=== PATIENT | male | born 1985 | race Two or more races ===

== ENCOUNTER 2018-04-22 06:40 | Emergency (ER) | payer OTHER ==
[2018-04-22 06:47] VITALS: BP 158/93; PULSE 112; TEMP 97.8; BMI 34.0
[2018-04-22] MEDS ORDERED: predniSONE 20 MG TABLET (UD) ONE (06:48)
[2018-04-22] MEDS ORDERED: KETOROLAC TROMETHAMINE 60 MG/2 ML VIAL IM ONE (06:48)
[2018-04-22] MEDS ORDERED: KETOROLAC TROMETHAMINE 60 MG/2 ML VIAL ONE (06:48)
[2018-04-22] MEDS ORDERED: predniSONE 20 MG TABLET (UD) PO ONE (06:48)
--- NOTE | 2018-04-22 06:53 | PDOC ---
History of Present Illness - General Chief Complaint: Pain, Acute Stated Complaint: BACK INJURY AT WORK YESTERDAY Time Seen by Provider: 04/22/18 06:47 History Source: Patient Exam Limitations: No Limitations - History of Present Illness Initial Comments: This is a 32-year-old male who comes in complaining of low back pain radiating to his right leg. 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 Patient was straining to lift an object yesterday at work when he felt sudden onset of low back pain that radiated to his right butt cheek. Over the course of the next 24 hours patient said pain is become progressively worse to the point that he is unable to work or obtain any sort of comfortable position. Patient denies any history of sciatica or back pain in the past. Patient did not take anything for the pain. Patient denies any weakness or numbness of the right leg. Allergies: None Past Medical History: none Social history: Lives with family. No smoking. No alcohol. No illicit drugs. Surgical history: None General: No fevers or chills, no weakness, no weight loss HEENT: No change in vision. No sore throat,. No ear pain CardioVascular: no chest discomfort. No shortness of breath Respiratory:No cough, or wheezing. Gastrointestinal: no nausea, vomiting, diarrhea or constipation, No rectal bleeding Genitourinary: No dysuria, hematuria, or frequency Musculoskeletal: Right leg pain Neurologic: Low back pain radiating to right hip and leg No headache, vertigo, dizziness or loss of consciousness Psychiatric: nor depression Skin: No rashes or easy bruising Endocrine: no increased thirst or abnormal weight change Allergic: no skin or latex allergy All other systems reviewed and normal GENERAL: The patient is awake, alert, and fully oriented, in no acute distress. HEAD: Normal with no signs of trauma. EYES: Pupils equal, round and reactive to light, extraocular movements intact, sclera anicteric, conjunctiva clear. EXTREMITIES:atraumatic, Normal range of motion, no edema. BACK: There is no bony tenderness on palpation of the lumbar spine however there is tenderness on palpation over the right sciatic notch Straight leg is positive on the right neurovascular is intact NEUROLOGICAL: Normal speech, normal gait. PSYCH: Normal mood, normal affect. SKIN: Warm, Dry, normal turgor, no rashes or lesions noted. Assessment plan: This is a 32-year-old male with new onset sciatica that radiates to the right buttock and thigh. Does not extend past the knee. Patient given Toradol, prednisone, and a muscle relaxant was sent to his pharmacy. Patient discharged and given a note for the rest of the week off from work and follow-up with an orthopedist. Past History - Past Medical History Allergies/Adverse Reactions: Allergies Allergy/AdvReac Type Severity Reaction Status Date / Time Penicillins Allergy Intermediate Rash Verified 04/22/18 06:42 Home Medications: Ambulatory Orders Methocarbamol [Robaxin -] 500 mg PO TID #21 tablet 04/22/18 Naproxen [Naprosyn] 500 mg PO BID #28 tablet 04/22/18 Asthma: No COPD: No Diabetes: No HTN: No - Immunization History Td Vaccination: No TDAP Vaccination: No Immunization Up to Date: No - Suicide/Smoking/Psychosocial Hx Smoking Status: Yes Smoking History: Current every day smoker Have you smoked in the past 12 months: Yes Number of Cigarettes Smoked Daily: 3 If you are a former smoker, when did you quit?: 6 MONTHS AGO Information on smoking cessation initiated: Yes 'Breaking Loose' booklet given: 10/01/13 Hx Alcohol Use: Yes (SOCIAL) Drug/Substance Use Hx: No Substance Use Type: None *Physical Exam - Vital Signs Last Vital Signs Temp Pulse Resp BP Pulse Ox 97.8 F 112 H 16 158/93 100 04/22/18 06:43 04/22/18 06:43 04/22/18 06:43 04/22/18 06:43 04/22/18 06:43 Moderate Sedation - Procedure Monitoring Vital Signs: Procedure Monitoring Vital Signs Temperature 97.8 F 04/22/18 06:43 Pulse Rate 112 H 04/22/18 06:43 Respiratory Rate 16 04/22/18 06:43 Blood Pressure 158/93 04/22/18 06:43 O2 Sat by Pulse Oximetry (%) 100 04/22/18 06:43 *DC/Admit/Observation/Transfer Diagnosis at time of Disposition: Sciatica of right side - Discharge Dispostion Disposition: HOME Condition at time of disposition: Stable Decision to Admit order: No - Prescriptions Prescriptions: Methocarbamol [Robaxin -] 500 mg PO TID #21 tablet Naproxen [Naprosyn] 500 mg PO BID #28 tablet - Referrals Referrals: Osiel Hidalgo MD [Staff Physician] - - Patient Instructions Additional Instructions: The pain from your back is due to irritation and compression of the sciatic nerve. I am sending a prescription to your pharmacy for naproxen which is an anti- inflammatory get the prescription and take it twice a day with food do not take on an empty stomach. I'm also sending a prescription to your pharmacy for a muscle relaxant U can take it as often as 3 times a day it may make you drowsy so when you take it be aware that you won't be able to operate heavy equipment or go to work. If you have to go to work and still need to take it limited to the nighttime hours. Follow-up with an orthopedist. Return to the emergency department immediately with ANY new, persistent or worsening symptoms. Continue any medications as previously prescribed by your physician. You should follow up with your primary doctor as soon as possible regarding today's emergency department visit. . Please make sure your doctor reviews the results of your emergency evaluation. Thank you for coming to the Emergency Department today for your care. It was a pleasure to see you today. Please note that your evaluation is INCOMPLETE until you follow-up with your doctor. - Post Discharge Activity Forms/Work/School Notes: Back to Work
== END 2018-04-22 06:59 | disposition home or self-care (01) ==
LOC: FER 06:40
PROC: 3E0233Z Introduction of Anti-inflammatory into Muscle, Percutaneous Approach (ICD-10-PCS; principal; 2018-04-22)
DX: M54.31 Sciatica, right side (principal); F17.210 Nicotine dependence, cigarettes, uncomplicated
CPT/HCPCS: 99281-25

== ENCOUNTER 2018-05-23 09:31 | Emergency (ER) | payer OTHER ==
[2018-05-23] MEDS ORDERED: SODIUM CHLORIDE 1,000 ML IV STA (09:49)
[2018-05-23] MEDS ORDERED: KETOROLAC TROMETHAMINE 30 MG/1 ML VIAL IVPUSH ONE (09:49)
[2018-05-23] MEDS ORDERED: KETOROLAC TROMETHAMINE 30 MG/1 ML VIAL ONE (09:50)
[2018-05-23 09:55] VITALS: BP 130/75; PULSE 68; TEMP 98.5; BMI 34.0
[2018-05-23 10:16] LABS: BASO % 0.7 % (0-2.0); EOS % 1.2 % (0-4.5); HEMATOCRIT 46.7 % (35.4-49); HEMOGLOBIN 14.9 GM/dl (11.7-16.9); LYMPH % 34.4 % (8-40); MCH 28.9 pg (25.7-33.7); MCHC 31.9 g/dl (32.0-35.9); MEAN CELL VOLUME 90.4 fl (80-96); MEAN PLT VOLUME 8.7 fl (7.5-11.1); MONO % 9.7 % (3.8-10.2); PLATELET COUNT 260 K/MM3 (134-434); RBC 5.16 M/mm3 (4.00-5.60); RDW 13.1 % (11.9-15.9); WHITE BLOOD COUNT 8.8 K/mm3 (4.0-10.8)
[2018-05-23 10:24] LABS: ALBUMIN 4.5 g/dl (3.4-5.0); ALK PHOS 51 U/L (45-117); ANION GAP 9 MMOL/L (8-16); BILIRUBIN,TOTAL 0.6 mg/dl (0.2-1); BLOOD UREA NITROGEN 18 mg/dl (7-18); CALCIUM 9.1 mg/dl (8.5-10); CHLORIDE 102 mmol/L (98-107); CO2 24 mmol/L (21-32); CREATININE 1.1 mg/dl (0.55-1.3); GLUCOSE,RANDOM 144 mg/dl (74-106); POTASSIUM 3.6 mmol/L (3.5-5.1); SGOT/AST 23 U/L (15-37); SGPT/ALT 25 U/L (13-61); SODIUM 135 mmol/L (136-145); TOT PROT 7.6 g/dl (6.4-8.2)
[2018-05-23] MEDS ORDERED: HYDROmorphone HCL CARPU-JECT 1 MG/1 ML DISP.SYRIN IVPUSH ONE (10:47)
[2018-05-23] MEDS ORDERED: HYDROmorphone HCL CARPU-JECT 1 MG/1 ML DISP.SYRIN ONE (10:49)
[2018-05-23] MEDS ORDERED: TAMSULOSIN HCL 0.4 MG CAP PO ONE (12:05)
--- NOTE | 2018-05-23 12:20 | PDOC ---
History of Present Illness - General Chief Complaint: Pain Stated Complaint: RT SIDE ABD PAIN Time Seen by Provider: 05/23/18 09:36 History Source: Patient, Parent(s) Exam Limitations: No Limitations - History of Present Illness Initial Comments: 05/23/18 12:16 CHIEF COMPLAINT: Right flank pain since yesterday HISTORY OF PRESENT ILLNESS: Healthy 32-year-old man presents complaining of onset of severe right flank and right lower quadrant pain with nausea and sweating since this morning. He states yesterday he felt some very mild discomfort in the right flank and urgency to urinate. He also felt some slight nausea. This morning when he got up to urinate, he had sudden onset of severe right lower quadrant pain, unable to get comfortable, came to the ED. He continues to feel the urge to urinate. He also feels the urge to defecate. He had a normal bowel movement yesterday. No diarrhea or constipation. Denies fever. Denies hematuria. Denies history of kidney stones. REVIEW OF SYSTEMS: GENERAL/CONSTITUTIONAL: No fever or chills. No weakness. No weight change. HEAD, EYES, EARS, NOSE AND THROAT: No change in vision. No ear pain or discharge. No sore throat. CARDIOVASCULAR: No chest pain or shortness of breath. RESPIRATORY: No cough, wheezing, or hemoptysis. GASTROINTESTINAL: Positive nausea. No diarrhea or constipation. Positive urge to defecate. GENITOURINARY: Positive urge to urinate. No hematuria or dysuria. No history of kidney stones. MUSCULOSKELETAL: No joint or muscle swelling or pain. No neck or back pain. SKIN AND BREASTS: No rash or easy bruising. NEUROLOGIC: No headache, vertigo, loss of consciousness, or loss of sensation. PSYCHIATRIC: No depression or anxiety. ENDOCRINE: No increased thirst. No abnormal weight change. HEMATOLOGIC/LYMPHATIC: No anemia, easy bleeding, or history of blood clots. ALLERGIC/IMMUNOLOGIC: No hives or skin allergy. No latex allergy. Past History - Past Medical History Allergies/Adverse Reactions: Allergies Allergy/AdvReac Type Severity Reaction Status Date / Time Fish Containing Products Allergy Severe Swelling Verified 05/23/18 09:47 shellfish derived Allergy Severe Swelling Verified 05/23/18 09:47 Penicillins Allergy Intermediate Rash Verified 05/23/18 09:47 Home Medications: Ambulatory Orders Naproxen [Naprosyn -] 500 mg PO BID PRN #15 tablet 05/23/18 Tamsulosin HCl [Flomax] 0.4 mg PO DAILY #7 capsule 05/23/18 Asthma: No COPD: No Diabetes: No HTN: No - Immunization History Td Vaccination: No TDAP Vaccination: No Immunization Up to Date: No - Suicide/Smoking/Psychosocial Hx Smoking Status: Yes Smoking History: Never smoked Have you smoked in the past 12 months: No Number of Cigarettes Smoked Daily: 3 If you are a former smoker, when did you quit?: 6 MONTHS AGO Information on smoking cessation initiated: No 'Breaking Loose' booklet given: 10/01/13 Hx Alcohol Use: No Drug/Substance Use Hx: No Substance Use Type: None *Physical Exam - Vital Signs Last Vital Signs Temp Pulse Resp BP Pulse Ox 98.5 F 68 20 130/75 99 05/23/18 09:31 05/23/18 09:31 05/23/18 09:31 05/23/18 09:31 05/23/18 09:31 - Physical Exam Comments: 05/23/18 12:18 GENERAL: The patient is awake, alert, and fully oriented, complaining of severe right flank and right lower quadrant pain, pacing around the ED, unable to hold still. HEAD: Normal with no signs of trauma. EYES: Pupils equal, round and reactive to light, extraocular movements intact, sclera anicteric, conjunctiva clear. ENT: Ears normal, nares patent, oropharynx clear without exudates. Moist mucous membranes. NECK: Normal range of motion, supple without lymphadenopathy, JVD, or masses. LUNGS: Breath sounds equal, clear to auscultation bilaterally. No wheezes, and no crackles. HEART: Regular rate and rhythm, normal S1 and S2 without murmur, rub or gallop. ABDOMEN: Soft, nontender, normoactive bowel sounds. No guarding, no rebound. No masses. No right lower quadrant tenderness. BACK: No CVA tenderness. Positive mild right flank tenderness. EXTREMITIES: Normal range of motion, no edema. No clubbing or cyanosis. No cords, erythema, or tenderness. NEUROLOGICAL: Cranial nerves II through XII grossly intact. Normal speech, normal gait. PSYCH: Normal mood, normal affect. SKIN: Warm, mildly diaphoretic, normal turgor, no rashes or lesions noted. ED Treatment Course - LABORATORY CBC & Chemistry Diagram: 05/23/18 09:54 05/23/18 09:45 - ADDITIONAL ORDERS Additional order review: Laboratory Results 05/23/18 05/23/18 09:54 09:45 Sodium 135 L Potassium 3.6 Chloride 102 Carbon Dioxide 24 Anion Gap 9 BUN 18 Creatinine 1.1 Creat Clearance w eGFR 77.09 Random Glucose 144 H Calcium 9.1 Total Bilirubin 0.6 AST 23 ALT 25 Alkaline Phosphatase 51 Total Protein 7.6 Albumin 4.5 Urine Color Yellow Urine Appearance Clear Urine pH 5.0 Urine Protein Negative Urine Glucose (UA) Negative Urine Ketones Negative Urine Blood 1+ H Urine Nitrite Negative Urine Bilirubin Negative Urine Urobilinogen 0.2 Ur Leukocyte Esterase Negative 05/23/18 09:54 RBC 5.16 MCV 90.4 MCHC 31.9 L RDW 13.1 MPV 8.7 Neutrophils % 54.0 Lymphocytes % 34.4 D Monocytes % 9.7 Eosinophils % 1.2 Basophils % 0.7 - RADIOLOGY Radiology Studies Ordered: Category Date Time Status ABDOMEN & PELVIS CT W/O CONTR [CT] Stat CT Scan 05/23/18 10:26 Taken - Medications Given in the ED: ED Medications Discontinued Medications Generic Name Dose Route Start Last Admin Trade Name Freq PRN Reason Stop Dose Admin Hydromorphone HCl 1 mg 05/23/18 10:47 05/23/18 10:52 Dilaudid Injection - IVPUSH 05/23/18 10:48 1 mg ONCE ONE Administration Sodium Chloride 1,000 mls @ 1,000 mls/hr 05/23/18 09:49 05/23/18 09:54 Normal Saline - IV 05/23/18 10:48 1,000 mls/hr ASDIR STA Administration Ketorolac Tromethamine 30 mg 05/23/18 09:49 05/23/18 09:54 Toradol Injection - IVPUSH 05/23/18 09:50 30 mg ONCE ONE Administration Medical Decision Making - Medical Decision Making 05/23/18 13:02 32-year-old man with a family history of kidney stones but no prior episodes himself. Patient presents with colicky right flank pain today. On examination , there is mild right flank tenderness. Laboratory studies are notable for microscopic hematuria. Leukocyte esterase and nitrites are negative with no evidence of urinary infection. White blood cell count is normal. Creatinine is normal. Glucose is mildly elevated, but is a nonfasting specimen. CT scan of the abdomen and pelvis shows a 3 mm x 3.5 mm stone in the right ureter just proximal to the UVJ. There is mild hydroureter and hydronephrosis. Impression: Right ureteral stone with renal colic. No evidence for infection. No evidence for renal dysfunction. Plan: Patient will be discharged home, recommended oral hydration, Flomax 0.4 mg daily, Naprosyn 500 mg twice daily as needed for pain, and referral to urology for follow-up. Patient advised to observe for fever or other serious symptoms and return immediately to the emergency department if any problems develop. Laboratory Results - last 24 hr 05/23/18 05/23/18 05/23/18 09:45 09:54 09:54 WBC 8.8 RBC 5.16 Hgb 14.9 Hct 46.7 MCV 90.4 MCH 28.9 MCHC 31.9 L RDW 13.1 Plt Count 260 MPV 8.7 Absolute Neuts (auto) 4.7 Neutrophils % 54.0 Lymphocytes % 34.4 D Monocytes % 9.7 Eosinophils % 1.2 Basophils % 0.7 Sodium 135 L Potassium 3.6 Chloride 102 Carbon Dioxide 24 Anion Gap 9 BUN 18 Creatinine 1.1 Creat Clearance w eGFR 77.09 Random Glucose 144 H Calcium 9.1 Total Bilirubin 0.6 AST 23 ALT 25 Alkaline Phosphatase 51 Total Protein 7.6 Albumin 4.5 Urine Color Yellow Urine Appearance Clear Urine pH 5.0 Urine Protein Negative Urine Glucose (UA) Negative Urine Ketones Negative Urine Blood 1+ H Urine Nitrite Negative Urine Bilirubin Negative Urine Urobilinogen 0.2 Ur Leukocyte Esterase Negative Urine RBC 3-5 Urine WBC 0-3 Ur Transition Epith Cell 1+ Urine Bacteria Few *DC/Admit/Observation/Transfer Diagnosis at time of Disposition: Renal colic on right side - Discharge Dispostion Disposition: HOME Condition at time of disposition: Improved Decision to Admit order: No - Prescriptions Prescriptions: Naproxen [Naprosyn -] 500 mg PO BID PRN #15 tablet PRN Reason: Pain Tamsulosin HCl [Flomax] 0.4 mg PO DAILY #7 capsule - Referrals Referrals: Milton March MD [Staff Physician] - 2 Days - Patient Instructions Printed Discharge Instructions: Kidney Stones -- Adult Additional Instructions: You were evaluated today for right-sided abdominal pain. The CAT scan shows a 3 mm kidney stone almost passing into the bladder. Drink plenty of fluids to help the kidney stone passed. Take Flomax 1 tablet daily to help the kidney stone passed. Take Naprosyn twice a day as needed for pain from the kidney stone. Follow-up with the urologist, Dr. Milton Grey. Call Friday to schedule a follow-up appointment. Observe for any fever or severe pain. Return to the emergency department if needed for severe symptoms. Strain the urine to catch the stone and save it for the urologist for analysis. In the future, drink extra fluids to maintain dilute urine and prevent recurrence of kidney stones. - Post Discharge Activity Forms/Work/School Notes: Back to Work
[2018-05-23 12:21] LABS: EPITHELIAL CELLS 1+ /hpf
[2018-05-23] MEDS ORDERED: TAMSULOSIN HCL 0.4 MG CAP ONE (12:29)
== END 2018-05-23 13:26 | disposition home or self-care (01) ==
LOC: FER 09:31
PROC: 3E033NZ Introduction of Analgesics, Hypnotics, Sedatives into Peripheral Vein, Percutaneous Approach (ICD-10-PCS; principal; 2018-05-23)
PROC: 3E0333Z Introduction of Anti-inflammatory into Peripheral Vein, Percutaneous Approach (ICD-10-PCS; 2018-05-23)
PROC: 3E0337Z Introduction of Electrolytic and Water Balance Substance into Peripheral Vein, Percutaneous Approach (ICD-10-PCS; 2018-05-23)
DX: N20.0 Calculus of kidney (principal)
CPT/HCPCS: 36415; 74176-TC; 80053; 81003; 81015; 85025; 99283-25; J7030

== ENCOUNTER 2019-01-01 07:06 | Emergency (ER) | payer SELFPAY ==
[2019-01-01 07:12] VITALS: BP 142/68; PULSE 90; TEMP 98.4; BMI 33.2
[2019-01-01] MEDS ORDERED: IBUPROFEN 400 MG TABLET (FP) PO ONE ×2 (07:17→07:20)
--- NOTE | 2019-01-01 07:20 | PDOC ---
History of Present Illness - General Chief Complaint: Sore Throat Stated Complaint: SORE THROAT Time Seen by Provider: 01/01/19 07:15 History Source: Patient Exam Limitations: No Limitations - History of Present Illness Initial Comments: 01/01/19 07:17 33y M no pmhx presents with complaint of sore throat x 3 days. Pt denies any fever, chills, runny nose, back pain. Pt notes a mild intermittent cough. Pt dnies any nv, abd pain, diarrhea, dysuria. is also sick with a sore throat but his kids are doing well. Past History - Past Medical History Allergies/Adverse Reactions: Allergies Allergy/AdvReac Type Severity Reaction Status Date / Time Fish Containing Products Allergy Severe Swelling Verified 05/23/18 09:47 shellfish derived Allergy Severe Swelling Verified 05/23/18 09:47 Penicillins Allergy Intermediate Rash Verified 05/23/18 09:47 Home Medications: Ambulatory Orders Azithromycin 500 mg PO DAILY #5 tablet 01/01/19 Asthma: No COPD: No Diabetes: No HTN: No - Immunization History Td Vaccination: No TDAP Vaccination: No Immunization Up to Date: No - Psycho Social/Smoking Cessation Hx Smoking Status: Yes Smoking History: Current every day smoker Have you smoked in the past 12 months: No Number of Cigarettes Smoked Daily: 5 If you are a former smoker, when did you quit?: 6 MONTHS AGO Information on smoking cessation initiated: Yes 'Breaking Loose' booklet given: 10/01/13 Hx Alcohol Use: No Drug/Substance Use Hx: No Substance Use Type: None Review of Systems - Review of Systems Able to Perform ROS?: Yes Comments:: 01/01/19 07:19 Constitutional - no reported Fever, Chills, HEENT: sore throat no reported vision changes, sore throat Respiratory: scant cough no reported sob, hemoptysis Cardiac: no reported chest pain, palpitations, light headedness, leg swelling Abd/GI: no reported abd pain, nausea, vomiting, blood per rectum, melena, diarrhea : no reported dysuria, frequency, discharge Musculskelatal - no reported back pain, joint swelling skin - no reported bruising, erythema, rash neurological: no reported headache, numbness, focal weakness, tingling, ataxia, hematologic: no reported easy bruising, easy bleeding *Physical Exam - Vital Signs Last Vital Signs Temp Pulse Resp BP Pulse Ox 98.4 F 90 16 142/68 98 01/01/19 07:09 01/01/19 07:09 01/01/19 07:09 01/01/19 07:09 01/01/19 07:09 - Physical Exam Comments: 01/01/19 07:19 GENERAL: The patient is awake, alert, and fully oriented, Nontoxic - in no acute distress. EYES: extraocular movements intact, sclera anicteric, conjunctiva clear. ENT: enlarged symmetric, erythemadous posterior pharynx/tonsils w/o exudates, patent posterior pharynx, Moist mucous membranes. NECK: Normal range of motion, supple LUNGS: Breath sounds equal, clear to auscultation bilaterally. No wheezes, no rhonchi, no rales. HEART: Regular rate and rhythm, normal S1 and S2 without murmur, rub or gallop. ABDOMEN: Soft, nontender, No guarding, no rebound. No CVA tenderness NEUROLOGICAL: No facial assymetry, Normal speech, Medical Decision Making - Medical Decision Making 01/01/19 07:20 strep throat vs pharyngitis no assymetry to suggest abscess will obtain rapid strep * motri for pain 01/01/19 07:48 strep positive will tx with azithro as the patient is allergic to pcn will have pt fu with pmd return precautiopns were discussed I discussed the physical exam findings, ancillary test results and final diagnoses with the patient. I answered all of the patient's questions. The patient was satisfied with the care received and felt comfortable with the discharge plan and treatment plan. The patient will call their primary care physician within 24 hours to arrange follow-up and will return to the Emergency Department with any new, persistent or worsening symptoms. Discharge - Discharge Information Problems reviewed: Yes Clinical Impression/Diagnosis: Strep pharyngitis Condition: Improved Disposition: HOME - Admission No - Follow up/Referral - Patient Discharge Instructions Patient Printed Discharge Instructions: DI for Strep Throat Additional Instructions: Return to the emergency department immediately with ANY new, persistent or worsening symptoms Including inability to tolerate oral intake, severe headache or any other concerning. Continue taking the antibiotics as prescribed. Take Motrin or Tylenol as needed for pain You MUST call and follow up with your doctor in 4 or 5 days for further evaluation of your symptoms. Results were discussed with you. Please make sure your doctor reviews the results of your emergency evaluation. Your Emergency Department visit is not complete without a follow up with your doctor. Print Language: MAURITIAN - Post Discharge Activity
== END 2019-01-01 08:07 | disposition home or self-care (01) ==
LOC: FER 07:06
DX: J02.0 Streptococcal pharyngitis (principal); F17.210 Nicotine dependence, cigarettes, uncomplicated; Z91.013 Allergy to seafood; Z88.0 Allergy status to penicillin
CPT/HCPCS: 87880; 99281-25

== ENCOUNTER 2021-06-01 16:36 | Emergency (ER) | payer OTHER ==
[2021-06-01] MEDS ORDERED: IBUPROFEN 600 MG TABLET (FP) PO ONE ×2 (17:01→17:03)
[2021-06-01 17:02] VITALS: BP 128/70; PULSE 84; TEMP 98.8; BMI 33.2
== END 2021-06-01 18:15 | disposition home or self-care (01) ==
LOC: FER 16:36
DX: S89.92XA Unspecified injury of left lower leg, initial encounter (principal); W10.8XXA Fall (on) (from) other stairs and steps, initial encounter
CPT/HCPCS: 73562-TC-LT-FY; 99283-25

== ENCOUNTER 2021-06-06 14:16 | Emergency (ER) | payer OTHER ==
[2021-06-06 14:29] VITALS: BP 133/66; PULSE 73; TEMP 98.6; BMI 34.7
== END 2021-06-06 15:39 | disposition home or self-care (01) ==
LOC: FER 14:16
DX: S83.92XA Sprain of unspecified site of left knee, initial encounter (principal); Y99.8 Other external cause status
CPT/HCPCS: 73560-TC-LT-FY; 99283-25

== ENCOUNTER 2021-10-12 18:23 | Emergency (ER) | payer OTHER ==
[2021-10-12 18:41] VITALS: BP 131/87; PULSE 88; RESP 16; TEMP 99; BMI 34.0
[2021-10-12] MEDS ORDERED: IBUPROFEN 600 MG TABLET (FP) PO ONE ×2 (18:45→18:49)
[2021-10-12] MEDS ORDERED: DOXYCYCLINE HYCLATE 100 MG CAPSULE PO ONE ×2 (18:45→18:49)
[2021-10-12] MEDS ORDERED: metroNIDAZOLE 500 MG TABLET PO ONE (18:48)
[2021-10-12] MEDS ORDERED: DIPHTH,PERTUSS(ACELL),TET 0.5 ML DISP.SYRIN IM ONE ×2 (18:49→18:50)
[2021-10-12] MEDS ORDERED: metroNIDAZOLE 250 MG TABLET ONE (18:50)
== END 2021-10-12 19:18 | disposition home or self-care (01) ==
LOC: FER 18:23
PROC: 3E0234Z Introduction of Serum, Toxoid and Vaccine into Muscle, Percutaneous Approach (ICD-10-PCS; principal; 2021-10-12)
DX: S51.851A Open bite of right forearm, initial encounter (principal); W54.0XXA Bitten by dog, initial encounter
CPT/HCPCS: 73090-TC-RT-FY; 90471; 90715; 99283-25

== ENCOUNTER 2022-05-19 11:59 | Emergency (ER) | payer OTHER ==
[2022-05-19 12:17] VITALS: BP 125/77; PULSE 74; RESP 15; BMI 34.0
[2022-05-19] MEDS ORDERED: NAPROXEN 500 MG TABLET PO ONE (12:17)
[2022-05-19] MEDS ORDERED: NAPROXEN 500 MG TABLET ONE (12:28)
== END 2022-05-19 14:00 | disposition home or self-care (01) ==
LOC: FER 11:59
DX: S80.912A Unspecified superficial injury of left knee, initial encounter (principal); V18.0XXA Pedal cycle driver injured in noncollision transport accident in nontraffic accident, initial encounter; Y93.55 Activity, bike riding
CPT/HCPCS: 73562-TC-LT-FY; 99283-25

== ENCOUNTER 2022-10-08 18:06 | Emergency (ER) | payer OTHER ==
[2022-10-08] MEDS ORDERED: IBUPROFEN 600 MG TABLET (FP) PO ONE ×2 (18:28→18:33)
[2022-10-08 18:30] VITALS: BP 133/87; PULSE 57; RESP 18; TEMP 98.4; BMI 32.5
== END 2022-10-08 18:41 | disposition home or self-care (01) ==
LOC: FER 18:06
DX: S00.06XA Insect bite (nonvenomous) of scalp, initial encounter (principal); R59.0 Localized enlarged lymph nodes; H92.02 Otalgia, left ear; H93.8X2 Other specified disorders of left ear; W57.XXXA Bitten or stung by nonvenomous insect and other nonvenomous arthropods, initial encounter
CPT/HCPCS: 99283-25

== ENCOUNTER 2023-02-12 07:53 | Emergency (ER) | payer OTHER ==
[2023-02-12 08:15] VITALS: BP 136/81; PULSE 68; RESP 18; TEMP 98.9; BMI 33.2
== END 2023-02-12 09:00 | disposition home or self-care (01) ==
LOC: FER 07:53
DX: R05.9 Cough, unspecified (principal)
CPT/HCPCS: 71046-TC-FY; 99283-25

== ENCOUNTER 2023-07-27 09:13 | Emergency (ER) | payer OTHER ==
[2023-07-27 09:27] VITALS: BP 109/63; PULSE 79; RESP 18; TEMP 98.7; BMI 28.0
[2023-07-27] MEDS ORDERED: ACETAMINOPHEN 500 MG TABLET (FP) ONE (09:37)
[2023-07-27] MEDS: ACETAMINOPHEN 500 MG TABLET (FP) PO ONE (09:40)
[2023-07-27] MEDS ORDERED: IBUPROFEN 400 MG TABLET (FP) PO ONE (10:59)
[2023-07-27] MEDS: IBUPROFEN 400 MG TABLET (FP) PO ONE (11:02)
== END 2023-07-27 11:03 | disposition home or self-care (01) ==
LOC: FER 09:13
DX: M25.511 Pain in right shoulder (principal); M25.522 Pain in left elbow; V18.0XXA Pedal cycle driver injured in noncollision transport accident in nontraffic accident, initial encounter; W17.81XA Fall down embankment (hill), initial encounter
CPT/HCPCS: 73030-TC-RT-FY; 73060-TC-RT-FY; 73070-TC-RT-FY; 99284-25

== ENCOUNTER 2023-12-02 19:43 | Emergency (ER) | payer SELFPAY ==
[2023-12-02 19:59] VITALS: BP 154/87; PULSE 80; RESP 16; TEMP 99; BMI 25.8
[2023-12-02] MEDS ORDERED: AZITHROMYCIN 500 MG TABLET ONE (21:05)
[2023-12-02] MEDS: AZITHROMYCIN 500 MG TABLET PO ONE (21:06)
== END 2023-12-02 21:07 | disposition home or self-care (01) ==
LOC: FER 19:43
DX: R05.2 Subacute cough (principal); Z20.822 Contact with and (suspected) exposure to COVID-19
CPT/HCPCS: 0241U-QW; 71046-TC-FY; 99284-25